=== PATIENT | male | born 1970 | race Caucasian/White ===

== ENCOUNTER 2024-12-09 09:03 | Emergency (ER) | payer OTHER ==
[~2024-12-09] VITALS: Ht 167.6 cm; Wt 81.6 kg
[~2024-12-09 09:03] MED LIST: AMOX TR-K CLV1 EAC2 PO; DICYCLOMINE HCL20 MG PO; METRONIDAZOLE500 MG PO
[2024-12-09 09:10] VITALS: RESP 17; TEMP 98.6
[2024-12-09] MEDS: DEXAMETHASONE SOD PHOS 10 MG/1 ML VIAL IM ONE (09:39)
[2024-12-09] MEDS: ALBUTEROL/IPRATROPIUM 3 ML NEB NEB ONE (09:44)
[2024-12-09 09:45] VITALS: PULSE 82; RESP 18; O2SAT 100
[2024-12-09 09:59] LABS: CORONAVIRUS COVID-19 AG NEGATIVE (NEGATIVE); INFLUENZA A AG NEGATIVE (NEGATIVE); INFLUENZA B AG NEGATIVE (NEGATIVE); STREPTOCOCCUS GRP A ANTIGEN NEGATIVE (NEGATIVE)
[2024-12-09 10:00] VITALS: PULSE 78; O2SAT 100
[2024-12-09] MEDS ORDERED: PREDNISONE50 MG PO (10:24)
== END 2024-12-09 11:02 | disposition home or self-care (01) ==
LOC: ER 09:30
DX: R05.9 Cough, unspecified (principal); J40 Bronchitis, not specified as acute or chronic; R09.89 Other specified symptoms and signs involving the circulatory and respiratory systems; I10 Essential (primary) hypertension; Z87.19 Personal history of other diseases of the digestive system; F17.200 Nicotine dependence, unspecified, uncomplicated
CPT/HCPCS: 83518; 87070; 87428; 94640; 94799; 99284; J1100